=== PATIENT | female | born 1980 | race African-American/Black ===

== ENCOUNTER 2022-02-11 16:04 | Emergency (ER) | payer SELFPAY ==
[2022-02-11 16:11] VITALS: BP 122/106; PULSE 118; RESP 20; TEMP 36.3; O2SAT 100
--- NOTE | 2022-02-11 16:42 | PC.NURSE ---
Pt refused to have blood pressure and vitals taken.
--- NOTE | 2022-02-11 17:19 | ED.GENADULT ---
HPI - General Adult General Chief complaint: Unspecified Stated complaint: Left arm/shoulder swelling Time Seen by Provider: 02/11/22 16:42 Source: patient, EMS and RN notes reviewed Mode of arrival: EMS Limitations: other (poor historian) History of Present Illness HPI narrative: This is a 41 year old female who presents for evaluation musculoskeletal issue. She states she has been diagnosed with fibromyalgia and has pain to right forearm. She states she wants tylenol and flexeril. EMS reports on patient seems to be using ambulance just for a ride. On arrival to ER, PAtient refused care and walked outside. She states she was waiting for her father but he did not arrival so she came inside. She states she felt like summer was getting to her and she was over heated. She denies chest pain, cough, sob, nausea or vomiting. She told nurse that she had numbness all over. She is refusing labs at this time. Related Data Allergies Allergy/AdvReac Type Severity Reaction Status Date / Time No Known Allergies Allergy Verified 02/11/22 16:39 Review of Systems Review of Systems: All systems reviewed & are unremarkable except as noted in HPI and below PMFSH Past Medical History Medical History (Updated 02/12/22 @ 00:00 by Jenn Lyn) Fibromyalgia Surgical History Surgical History (Updated 02/11/22 @ 20:19 by Debbie Philip MD) No pertinent past surgical history Social History Social History (Updated 02/11/22 @ 20:19 by Debbie Philip MD) Smoking status: Never smoker Exam Narrative: GENERAL: obese, and in no acute distress. patient initially sleeping when I walked into room HEAD: Normocephalic, atraumatic EYES: PERRLA and EOMI, conjunctiva clear without discharge EARS: TM's clear bilaterally without erythema or dullness NOSE: Nares clear, no rhinorrhea or epistaxis THROAT:Mucous membranes moist, Oropharynx normal without erythema, exudate, peritonsillar swelling or fluctuance NECK: Supple, without lymphadenopathy or mass RESPIRATORY: No respiratory distress, Airway patent, Respirations non-labored, Clear to auscultation without rales, rhonchi or wheeze HEART: Regular rate and rhythm. No murmur heard. Normal peripheral pulses. ABDOMEN: Soft, nontender, nondistended, normal active bowel sounds. No masses. No rebound or guarding, No organomegaly. EXTREMITIES: No edema, normal strength with full range of motion. bottom of feet extremely dirty SKIN: Warm, dry, normal color without rash NEURO: Alert and oriented x3. CN 2-12 grossly intact. No focal deficits. PSYCH: Normal mood and affect. Course Reevaluation(s) Reevaluation #1: I explained to patient that she was found to have elevated heart rate and she complains of not feeling well with myalgia. She states she thinks she is overheated. I explained to patient that she needs labs to assess her . She Date: 02/11/22 Time: 17:20 Reevaluation #2: PAtient's labs are normal. she is refusing to give urine. She will be discharged. She is eating and drinking with out difficulty. Date: 02/11/22 Time: 20:20 Vital Signs Vital signs: Vital Signs Temperature 97.3 F L 02/11/22 16:11 Pulse Rate 118 H 02/11/22 16:11 Respiratory Rate 02/11/22 16:11 Blood Pressure 122/106 H 02/11/22 16:11 Pulse Oximetry 100 02/11/22 16:11 Oxygen Delivery Room Air 02/11/22 16:11 Temperature 97.3 F L 02/11/22 16:11 Pulse Rate 118 H 02/11/22 16:11 Respiratory Rate 02/11/22 16:11 Blood Pressure 122/106 H 02/11/22 16:11 Pulse Oximetry 100 02/11/22 16:11 Oxygen Delivery Room Air 02/11/22 16:11 Medical Decision Making Vital Signs Vital Signs: Vital Signs Temperature 97.3 F L 02/11/22 16:11 Pulse Rate 118 H 02/11/22 16:11 Respiratory Rate 02/11/22 16:11 Blood Pressure 122/106 H 02/11/22 16:11 Pulse Oximetry 100 02/11/22 16:11 Oxygen Delivery Room Air 02/11/22 16:11 Temperature 97.3
--- NOTE | 2022-02-11 17:59 | PC.NURSE ---
patient refused all medical treatment and reports that she is going to sign out AMA, then once RN asked her to sign paperwork she states Fine draw my blood then. EDP aware at this time.
[2022-02-11 18:32] LABS: Basophils Percent Auto 0.2 % (0.2-1.2); Eosinophils Absolute Auto 0.1 K/mm3 (0-0.3); Eosinophils Percent Auto 0.6 % (0-4.4); Hematocrit 35.2 % (37.0-47.0); Hemoglobin 10.3 g/dL (12.0-15.0); Immature Granulocyte Absolute 0.05 K/mm3 (0.00-0.031); Immature Granulocyte Percent A 0.5 % (0-0.5); Immature Platelet Fraction Pct 1.5 % (0.9-11.2); Lymphocytes Absolute Auto 2.48 K/mm3 (0.9-3.2); Lymphocytes Percent Auto 23.2 % (18.3-44.2); Mean Corpuscular HGB Conc 29.3 g/dl (32-36); Mean Corpuscular Hemoglobin 19.4 pg (26-34); Mean Corpuscular Volume 66.4 fl (80-100); Mean Platelet Volume 9.1 fl (7.4-10.4); Monocytes Absolute Auto 0.5 K/mm3 (0.1-0.6); Monocytes Percent Auto 4.6 % (2.6-8.5); Neutrophils Absolute Auto 7.6 K/mm3 (1.3-6.7); Neutrophils Percent Auto 70.9 % (45.5-73.1); Platelet Count Result 412 k/mm3 (150-375); Red Cell Distribution Width 23.1 % (11.5-14.5); White Blood Count 10.7 K/mm3 (4.5-10.0)
--- NOTE | 2022-02-11 18:33 | PC.NURSE ---
Patient declining to use the bathroom and reports that she usually doesn't urinate often during the day. Patient not cooperative with IV placement, falling asleep while asking questions. Patient request is water and apple juice which is provided after EDP approval. Patient declines getting up to use the bathroom at this time. Blood work sent
[2022-02-11 18:41] LABS: Alanine Aminotransferase 28 U/L (6-35); Alkaline Phosphatase 63 U/L (38-126); Anion Gap 4 mmol/L (8-16); Aspartate Amino Transferase 32 U/L (14-36); Bilirubin,Total 0.4 mg/dL (0.2-1.3); Blood Urea Nitrogen 20 mg/dL (7-17); Carbon Dioxide 26 mmol/L (22-30); Chloride 109 mmol/L (98-107); Creatine Kinase 236 U/L (30-135); Estimated Glomerular Filt Rate > 60; Glucose 95 mg/dL (65-110); Lactic Acid Reflex 0.8 mmol/L (0.7-2.0); Potassium 3.9 mmol/L (3.4-5.0); Sodium 139 mmol/L (137-145)
[2022-02-11 19:00] LABS: Platelet Estimate Adequate (Adequate)
[2022-02-11 19:01] LABS: Anisocytosis 3+ (NORMAL); Hypochromasia 2+ (NORMAL); Ovalocytes 1+ (NORMAL); Target Cells 1+ (NORMAL)
[2022-02-11] MEDS: ACETAMINOPHEN 500 MG TABLET 1000 MG PO (19:22)
== END 2022-02-11 20:57 | disposition home or self-care (01) ==
PROVIDERS: Emergency Provider General Practice
DX: M79.7 Fibromyalgia (principal)
CPT/HCPCS: 36415; 80053; 82550; 83605; 83735; 85025; 85055; 99283; A9270